=== PATIENT | female | born 1960 | race African-American/Black ===

== ENCOUNTER 2021-05-12 18:54 | Observation (INO) ==
[2021-05-12] MEDS ORDERED: LABETALOL 20 MG/4 ML SYRINGE IV STA ×2 (20:55→21:21)
[2021-05-12 21:25] LABS: Basophils # 0.1 10*3/uL (0.0-0.2); Basophils % 0.5 % (0.0-0.8); Eosinophils # 0.1 10*3/uL (0.0-0.87); Eosinophils % 0.4 % (0.00-10.9); Hematocrit 44.1 VOL% (35.7-47.0); Hemoglobin 15.1 GM/DL (12.0-16.0); Immature Granulocytes % 0.4 %; Immature Granulocytes Absolute 0.06 #; Lymphocytes % 13.2 % (21.3-54.2); Mean Corpuscular HGB Conc 34.2 GM/DL (32-36); Mean Corpuscular Volume 86.5 FL (87-102); Mean Platelet Volume 11.2 FL (9.6-12.0); Monocytes % 3.5 % (1.7-12.7); Platelet Count 239 T/CUMM (130-400); Red Cell Distribution Width 12.2 % (9.3-17.3); White Blood Count 14.9 T/CUMM (4-12)
[2021-05-12 21:34] LABS: Bilirubin,Urine Negative (Negative); Blood, Urine Small mg/dL (Negative); Glucose,Urine (UA) >=500 mg/dL (Negative); Ketones,Urine 5 mg/dL (Negative); Nitrite,Urine Negative (Negative); Protein,Urine 100 MG/DL; RBC,Urine 1 /HPF (0-4); Squamous Epithelial Cell,Urine Occasional /HPF (0-10); Urine Appearance CLEAR (Clear); Urine Color Colorless (Yellow); Urine Specific Gravity 1.021 (1.001-1.035); Urine Urobilinogen < 2.0 EU/DL (0.2-1.0)
[2021-05-12 21:49] LABS: Albumin 4.4 G/DL (3.4-5.0); Bilirubin,Total 0.6 MG/DL (0.20-1.00); Calcium 10.4 MG/DL (8.5-10.1); Osmolality,Calculated 301.1 MOS/KG (273-304); Potassium 3.6 MMOL/L (3.5-5.1); Total Protein 8.6 G/DL (6.4-8.2)
[2021-05-12] MEDS ORDERED: LACTATED RINGERS 1,000 ML IV ONE (21:55)
[2021-05-12] MEDS ORDERED: ACETAMINOPHEN 500 MG TABLET PO STA (21:55)
[2021-05-12] MEDS ORDERED: INSULIN REGULAR 100 UNIT/ML IV ONE (21:58)
[2021-05-12] MEDS ORDERED: ACETAMINOPHEN 500 MG TABLET ONE (22:03)
[2021-05-12] MEDS ORDERED: hydrALAZINE 20 MG/1 ML VIAL IV STA (22:40)
[2021-05-13] MEDS ORDERED: ONDANSETRON 4 MG/2 ML VIAL IV PRN (00:42)
[2021-05-13] MEDS ORDERED: DEXTROSE 50% 25 GM/50 ML VIAL IV PRN ×2 (00:42)
[2021-05-13] MEDS ORDERED: GLUCAGON 1 MG VIAL IM PRN (00:42)
[2021-05-13] MEDS ORDERED: hydrALAZINE 20 MG/1 ML VIAL IV PRN (00:42)
[2021-05-13] MEDS: ACETAMINOPHEN 325 MG TABLET PO PRN ×2 (02:00→20:41)
[2021-05-13] MEDS: ENOXAPARIN 40 MG/0.4 ML SYRINGE SUBCUT SCH (02:01)
[2021-05-13] MEDS: DOXYCYCLINE HYCLATE INJ 100 MG in SODIUM CHLORIDE 0.9% 100 ML IV SCH ×2 (04:31→14:55)
[2021-05-13 05:55] LABS: Basophils # 0.1 10*3/uL (0.0-0.2); Basophils % 0.4 % (0.0-0.8); Eosinophils % 0.1 % (0.00-10.9); Hemoglobin 13.5 GM/DL (12.0-16.0); Immature Granulocytes % 0.4 %; Immature Granulocytes Absolute 0.05 #; Lymphocytes # 4.2 10*3/uL (1.4-4.0); Lymphocytes % 30.9 % (21.3-54.2); Mean Corpuscular HGB Conc 35.5 GM/DL (32-36); Mean Corpuscular Volume 84.6 FL (87-102); Mean Platelet Volume 11.3 FL (9.6-12.0); Monocytes % 4.7 % (1.7-12.7); Neutrophils % 63.5 % (38.7-73.9); Platelet Count 199 T/CUMM (130-400); Red Blood Count 4.49 MC/CUMM (3.8-5.5); Red Cell Distribution Width 12.2 % (9.3-17.3); White Blood Count 13.7 T/CUMM (4-12)
[2021-05-13 06:20] LABS: Albumin 3.5 G/DL (3.4-5.0); Bilirubin,Total 0.5 MG/DL (0.20-1.00); Calcium 9.7 MG/DL (8.5-10.1); Potassium 3.1 MMOL/L (3.5-5.1); Total Protein 7.5 G/DL (6.4-8.2)
[2021-05-13] MEDS: INSULIN GLARGINE 100 UNIT/ML SUBCUT SCH (09:54)
[2021-05-13] MEDS: amLODIPine 10 MG TABLET PO SCH (09:54)
[2021-05-13] MEDS: PANTOPRAZOLE 40 MG TABLET PO SCH (09:54)
[2021-05-13] MEDS: POTASSIUM CHLORIDE 20 MEQ TABLET PO SCH (15:51)
[2021-05-13] MEDS: SODIUM CHLOR 0.45% KCL 20 MEQ 20 MEQ/1,000 ML BAG IV SCH (15:51)
[2021-05-13] MEDS: SERTRALINE 50 MG TABLET PO SCH (15:51)
[2021-05-13] MEDS: GABAPENTIN 300 MG CAPSULE PO SCH (15:51)
[2021-05-13] MEDS: INSULIN LISPRO 100 UNIT/ML SUBCUT SCH ×3 (15:53→21:43)
[2021-05-13] MEDS ORDERED: ATORVASTATIN 20 MG TABLET PO SCH (21:00)
[2021-05-13] MEDS ORDERED: INSULIN GLARGINE 100 UNIT/ML SUBCUT SCH (21:00)
[2021-05-14] MEDS: ENOXAPARIN 40 MG/0.4 ML SYRINGE SUBCUT SCH (01:51)
[2021-05-14] MEDS: DOXYCYCLINE HYCLATE INJ 100 MG in SODIUM CHLORIDE 0.9% 100 ML IV SCH ×2 (01:51→14:57)
[2021-05-14] MEDS: SODIUM CHLOR 0.45% KCL 20 MEQ 20 MEQ/1,000 ML BAG IV SCH ×3 (06:05→15:24)
[2021-05-14 08:01] LABS: Basophils # 0.1 10*3/uL (0.0-0.2); Basophils % 0.7 % (0.0-0.8); Eosinophils # 0.3 10*3/uL (0.0-0.87); Eosinophils % 2.9 % (0.00-10.9); Hematocrit 38.3 VOL% (35.7-47.0); Hemoglobin 13.1 GM/DL (12.0-16.0); Immature Granulocytes % 0.2 %; Immature Granulocytes Absolute 0.02 #; Lymphocytes # 4.6 10*3/uL (1.4-4.0); Lymphocytes % 51.6 % (21.3-54.2); Mean Corpuscular HGB Conc 34.2 GM/DL (32-36); Mean Corpuscular Volume 85.9 FL (87-102); Mean Platelet Volume 10.4 FL (9.6-12.0); Neutrophils % 38.6 % (38.7-73.9); Platelet Count 186 T/CUMM (130-400); Red Blood Count 4.46 MC/CUMM (3.8-5.5); Red Cell Distribution Width 12.3 % (9.3-17.3); White Blood Count 8.9 T/CUMM (4-12)
[2021-05-14 08:18] LABS: Calcium 9.2 MG/DL (8.5-10.1); Osmolality,Calculated 275.1 MOS/KG (273-304); Potassium 3.5 MMOL/L (3.5-5.1)
[2021-05-14] MEDS ORDERED: ASPIRIN EC 81 MG TABLET PO SCH (09:00)
[2021-05-14] MEDS: INSULIN LISPRO 100 UNIT/ML SUBCUT SCH ×3 (09:29→17:11)
[2021-05-14] MEDS ORDERED: LOSARTAN 50 MG TABLET PO SCH (09:30)
[2021-05-14] MEDS: INSULIN GLARGINE 100 UNIT/ML SUBCUT SCH (09:30)
[2021-05-14] MEDS: amLODIPine 10 MG TABLET PO SCH (09:31)
[2021-05-14] MEDS: GABAPENTIN 300 MG CAPSULE PO SCH (09:31)
[2021-05-14] MEDS: PANTOPRAZOLE 40 MG TABLET PO SCH (09:31)
[2021-05-14] MEDS: POTASSIUM CHLORIDE 20 MEQ TABLET PO SCH (09:31)
[2021-05-14] MEDS: SERTRALINE 50 MG TABLET PO SCH (09:31)
[2021-05-14 11:03] LABS: Eosinophils 1 % (0-10); Lymphocytes 52 % (20-55); Segmented Neutrophils 44 % (50-85); Total Cells Counted 100
[2021-05-14 11:04] LABS: Hypochromasia Slight; Microcytosis Slight; Platelet Estimate Adequate; Polychromasia Slight
[2021-05-14] MEDS: ACETAMINOPHEN 325 MG TABLET PO PRN (12:28)
[2021-05-14 14:16] VITALS: BP 152/74
== END 2021-05-14 16:55 | disposition home or self-care (01) ==
LOC: N.ED 18:54 → N.EDINP 18:54 → SUATTDRO 05-13 00:42 → N.EDINP 05-13 01:36 → N.TELEN 05-13 02:32 → N.4E 05-13 19:57
PROVIDERS: ADMIT Internal Medicine; ATTEND Internal Medicine